=== PATIENT | male | born 1960 | race Caucasian/White ===

== ENCOUNTER 2017-10-27 15:04 | Observation (INO) | payer MEDICARE, OTHER ==
[~2017-10-27] VITALS: Ht 175.3 cm; Wt 110.6 kg
[2017-10-27] VITALS (8 sets, daily range): BP systolic 150–165; BP diastolic 63–98; PULSE 63–70; TEMP 97.7–99.1; O2SAT 93–94
[~2017-10-27 15:04] MED LIST: ANDROGEL1.62% TP; ASPIRIN 32325 MG/TAB PO; COZAAR100 MG PO; GLUCOPHAGE1000 MG PO; LIPITOR 10MG10 MG PO; NATURAL E400 IU PO; NEXIUM 40MG40 MG PO; PROVENTIL0.09 MG/A1 IH; TENORMIN 5050 MG/TAB PO; VITAMIN C PUR1000 MG PO; XANAX 0.5MG0.5 MG PO
[2017-10-27] MEDS ORDERED: VITAMIN D 50,1.25 MG PO (16:02)
[2017-10-27] MEDS ORDERED: FORTESTA10 MG/0.5 TP (16:04)
[2017-10-27] MEDS ORDERED: VENLAFAXINE225 MG PO (16:05)
[2017-10-27] MEDS ORDERED: MINIPRESS 1M1 MG/CAP PO (16:07)
[2017-10-27] MEDS ORDERED: RESTORIL 1515 MG/CAP PO (16:08)
[2017-10-27] MEDS ORDERED: NORCO 325 MG-51 TAB PO (16:08)
[2017-10-27] MEDS ORDERED: FLOMAX 0.40.4 MG/CAP PO (16:09)
[2017-10-27] MEDS ORDERED: ADVIL200 MG PO (16:09)
== END 2017-10-27 20:25 | disposition home or self-care (01) ==
LOC: SDCO 15:04 → ICU 17:17
DX: N20.1 Calculus of ureter (principal); E11.9 Type 2 diabetes mellitus without complications; Z79.84 Long term (current) use of oral hypoglycemic drugs; Z79.899 Other long term (current) drug therapy; I10 Essential (primary) hypertension; J45.909 Unspecified asthma, uncomplicated; G47.33 Obstructive sleep apnea (adult) (pediatric); K21.9 Gastro-esophageal reflux disease without esophagitis; K58.9 Irritable bowel syndrome, unspecified
CPT/HCPCS: C1769; C1894; C2617; J0690; J1100; J2405; J2704; J3010; J7030; Q9967

== ENCOUNTER 2022-01-29 10:23 | Day surgery (SDC) | payer MEDICARE, OTHER ==
[2022-01-29] VITALS (11 sets, daily range): BP systolic 139–166; BP diastolic 50–83; PULSE 44–56; TEMP 98–98.4
[~2022-01-29] VITALS: Ht 175.3 cm; Wt 117.0 kg
[~2022-01-29 10:23] MED LIST changes: +ADVIL200 MG PO; +FLOMAX 0.40.4 MG/CAP PO; +FORTESTA10 MG/0.5 TP; +MINIPRESS 1M1 MG/CAP PO; +NORCO 325 MG-51 TAB PO; +RESTORIL 1515 MG/CAP PO; +VENLAFAXINE225 MG PO; +VITAMIN D 50,1.25 MG PO
[2022-01-29] MEDS ORDERED: CARTIA XT180 MG PO (11:18)
[2022-01-29] MEDS ORDERED: MELATONIN5 M1 SL (11:19)
[2022-01-29] MEDS ORDERED: CYMBALTA 60MG60 MG PO (11:19)
[2022-01-29] MEDS ORDERED: LANTUS100 U/ML SQ (11:20)
[2022-01-29] MEDS ORDERED: HUMALOG PEN100 U/ML SQ (11:21)
[2022-01-29] MEDS ORDERED: BENEFIBER (11:22)
--- NOTE | 2022-01-29 16:14 | NUR ---
PT ARRIVED TO THE FLOOR FROM OR WITH FAMILY, DRESSING CDI, IV ON LEFT HAND, VITALS CHECKED PER PROTOCOL, GIVEN XANAX FOR ANXIETY, MOTRIN FOR PAIN, WILL CONTINUE TO MONITOR.
[2022-01-30 03:54] VITALS: BP 140/63; PULSE 51; TEMP 97.3
--- NOTE | 2022-01-30 06:26 | NUR ---
pain controlled with motrin and norco , IVF infusing per piv @75cc/hr, taking po well, no NV. up to restroom, voiding large amts. drs to neck cdi
[2022-01-30 07:52] VITALS: BP 129/73; PULSE 50; TEMP 97.7
--- NOTE | 2022-01-30 10:12 | NUR ---
Initial visit; Patient and thanked Building Performance Specialist for looking in on Yuriy and offering God's blessings. Building Performance Specialist will follow up while Ximena is hospitalized.
--- NOTE | 2022-01-30 10:33 | NUR ---
PT ALERT AND ORIENTED, FAMILY AT BEDSIDE, DRINKING AND EATING WELL, SCHEDULED MOTRIN GIVEN AND PAIN IS CONTROLLED, STILL WITH INT INFUSING WELL ON HIS LFA, WILL CONTINUE TO MONITOR.
[2022-01-30 11:39] VITALS: BP 151/67; PULSE 48; TEMP 97.9
[2022-01-30] MEDS ORDERED: NORCO 325 MG-51 TAB PO (12:07)
--- NOTE | 2022-01-30 14:47 | NUR ---
[employer] met with patient to discuss discharge planning. Patient lives in [place] with his , Noemi (ph#[phone]) and sees Dr. Hughes for primary care. Patient obtains medications from either [facility] or [facility] in . Patient uses a CPAP and no other DME. Patient is independent with ADLS and remarked that he still mows his yard. Patient does not have Advance Directives. Legal next of kin is his , Noemi who is at bedside. Patient plans to return home at time of discharge.
--- NOTE | 2022-01-30 15:56 | NUR ---
Talked with Dr Murphy, received orders for discharge. Reviewed discharge instructions with pt and family that was present in the room. All questions answered. Addressed activity, pain, incision care and follow up appointment. INT removed from left hand. Educated pt to use call light when he is ready to be escorted out.
== END 2022-01-30 15:59 | disposition home or self-care (01) ==
LOC: SDCO 10:23 → SURG 10:23 → SDCO 12:30 → SURG 15:54 → SDCO 01-30 15:59
DX: E04.1 Nontoxic single thyroid nodule (principal); D34 Benign neoplasm of thyroid gland; Z79.899 Other long term (current) drug therapy; Z79.82 Long term (current) use of aspirin
CPT/HCPCS: OP; J1815; J2250; J2405; J2704; J3010; J7030; J7120

== ENCOUNTER → 2024-03-01 | Outpatient (CLI) | payer MEDICARE, OTHER ==
[~2024-03-01] MED LIST changes: +BENEFIBER; +CARTIA XT180 MG PO; +CYMBALTA 60MG60 MG PO; +HUMALOG PEN100 U/ML SQ; +LANTUS100 U/ML SQ; +MELATONIN5 M1 SL
== END ==
LOC: COL.RAD 13:27
DX: K21.9 Gastro-esophageal reflux disease without esophagitis (principal)